=== PATIENT | female | born 1970 | race Two or more races ===

== ENCOUNTER 2020-09-15 11:58 | Emergency (ER) | payer BC ==
[~2020-09-15] VITALS: Ht 162.6 cm; Wt 94.8 kg
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
[2020-09-15] MEDS ORDERED: LIDOCAINE HCL/MPF 1% 30 ML VIAL IJ ONE (12:22)
[2020-09-15] MEDS ORDERED: BACI/NEOM/POLY B OINT PKT 1 UDPKT PACKET ONE (12:22)
[2020-09-15] MEDS ORDERED: HYDROCODONE/APAP 5/325MG TABLET ONE (12:26)
--- NOTE | 2020-09-15 12:29 | NUR ---
at bedside wound care ongoing
[2020-09-15] MEDS ORDERED: BACI/NEOM/POLY B OINT PKT 1 UDPKT PACKET TP ONE (12:30)
[2020-09-15] MEDS ORDERED: LIDOCAINE HCL/PF 1% 30 ML VIAL TP ONE (12:30)
[2020-09-15] MEDS ORDERED: HYDROCODONE/APAP 5/325MG TABLET PO ONE (12:30)
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
--- NOTE | 2020-09-15 13:15 | NUR ---
PD [id number] AT BEDSIDE INTERVIEWING PT
[2020-09-15 14:01] VITALS: BP 138/64
== END 2020-09-15 14:02 | disposition home or self-care (01) ==
LOC: ER 12:07
DX: S61.411A Laceration without foreign body of right hand, initial encounter (principal); S20.212A Contusion of left front wall of thorax, initial encounter; Z98.890 Other specified postprocedural states; V49.49XA Driver injured in collision with other motor vehicles in traffic accident, initial encounter; Y93.89 Activity, other specified; Y92.488 Other paved roadways as the place of occurrence of the external cause; Y99.8 Other external cause status
CPT/HCPCS: 12002; 71045; 73130; 99284; A6403 ×2; J3490 ×2